=== PATIENT | female | born 1995 | race Two or more races ===

== ENCOUNTER → 2017-03-23 | Outpatient (CLI) | payer OTHER ==
--- NOTE | 2017-03-23 17:06 | REP ---
Right foot series: Four views. History: Right foot pain. Findings: Four views of the right foot demonstrate overall normal mineralization. Bones, joints and soft tissues are unremarkable. No fracture or other acute bony abnormality. Impression: Negative right foot radiographs. Signed by Bobby Moses MD 03/24/2017 07:54 A
== END ==
LOC: M LRY 16:14
PROVIDERS: ATTEND Physician Assistant
DX: M79.671 Pain in right foot (principal)
CPT/HCPCS: 73630; G0463

== ENCOUNTER → 2017-03-23 | Outpatient (REF) | payer OTHER | LOC: M SFHCLERA 16:22 | PROVIDERS: ATTEND Physician Assistant | DX: J02.9 Acute pharyngitis, unspecified (principal) ==